=== PATIENT | female | born 1945 | race Caucasian/White ===

== ENCOUNTER 2021-01-12 16:49 | Inpatient (IN) | payer OTHER ==
[2021-01-12] MEDS ORDERED: Lorazepam 2 MG/ML VIAL ONE (17:07)
[2021-01-12 17:09] LABS: #Basophils 0.1 thou/uL (0.0-0.2); #Eosinphils 0.1 thou/uL (0.0-0.7); #Lymphocytes 1.5 thou/uL (1.20-3.40); #Monocytes 0.3 thou/uL (0.11-0.59); #Neutrophils 10.7 thou/uL (1.40-6.50); %Basophils 0.7 % (0.0-1.0); %Eosinophils 0.7 % (0.0-10.0); %Lymphocytes 11.5 % (21.0-51.0); %Monocytes 2.7 % (0.0-10.0); %Neutrophils 84.4 % (42.0-75.0); Hemoglobin 14.3 g/dL (12.0-16.0); Mean Corpuscular HGB CONC 33.6 g/dL (32.0-36.0); Mean Corpuscular Hemoglobin 31.7 pg (27.0-31.0); Mean Corpuscular Volume 94.4 fL (78.0-98.0); Mean Platelet Volume 6.1 fL (7.4-10.4); Platelet Count 212 thou/uL (130-400); RBC Distribution Width 12.5 % (11.5-14.5); Red Blood Cell (RBC) Count 4.52 mill/uL (4.20-5.40); White Blood Cell (WBC) Count 12.6 thou/uL (4.8-10.8)
[2021-01-12 17:15] LABS: INR-International Normal Ratio 0.9; PTT 26.5 sec (22.9-36.1); Prothrombin Time 12.8 sec (12.0-14.7)
[2021-01-12] MEDS ORDERED: levETIRAcetam in NS 100 ML ONE (17:21)
[2021-01-12 17:29] LABS: ALT (SGPT) 13 U/L (8-55); AST (SGOT) 15 U/L (5-34); Albumin 4.4 g/dL (3.4-4.8); Alkaline Phosphatase 85 U/L (40-110); Anion Gap 19 mmol/L (10-20); BUN (Urea Nitrogen) 12 mg/dL (9.8-20.1); Bilirubin, Total 0.4 mg/dL (0.2-1.2); Calc. Creatinine Clearance 0 mL/min (70-130); Calcium 9.8 mg/dL (7.8-10.44); Carbon Dioxide 18 mmol/L (23-31); Chloride 100 mmol/L (98-107); Globulin 2.8 g/dL (2.4-3.5); Glucose 106 mg/dL (83-110); Potassium 4.7 mmol/L (3.5-5.1); Protein, Total 7.2 g/dL (5.8-8.1); Sodium 132 mmol/L (136-145)
[2021-01-12] MEDS ORDERED: niCARdipine 20MG In NaCl 20 MG/200 ML BAG ONE (18:20)
[2021-01-12 18:33] LABS: Actual Bicarbonate (HCO3v) 18 mEq/L (22-28); Analyzer IN Cardio ER; Base Excess -2.6 mEq/L (-2.0 to +3.0); Calcium, Ionized (venous) 0.98 mmol/L (1.16-1.32); Chloride (VBG) 100 mmol/L (98-106); Hemoglobin (Hb) 16.1 g/dL (11.7-16.1); Potassium (VBG) 5.68 mmol/L (3.70-5.30); Sodium 129.5 mmol/L (133-146); pH (venous) 7.52 (7.32-7.43)
[2021-01-12] MEDS ORDERED: niCARdipine 25 MG in Sodium Chloride 0.9% 250 ML 240 ML IVPB PRN (19:42)
[2021-01-12] MEDS ORDERED: Sodium Chloride 0.9% 1,000 ML IV SCH (19:45)
[2021-01-12] MEDS ORDERED: Acetaminophen 650 MG/20.3 ML UDCUP PO PRN (19:47)
[2021-01-12] MEDS ORDERED: Ketorolac Tromethamine 30 MG/ML VIAL IVP SCH (21:00)
[2021-01-12] MEDS ORDERED: hydrALAZINE 20 MG/ML VIAL SLOW IVP PRN (21:26)
[2021-01-12] MEDS ORDERED: Aspirin 325 MG TAB PO SCH (22:00)
[2021-01-12] MEDS ORDERED: Trospium 20 MG TAB PO SCH (22:15)
[2021-01-12 22:21] LABS: Hemoglobin A1c 4.6 % (4.0-6.0)
[2021-01-12 22:31] LABS: Cardiac Risk 3.7 (Less than 4.5)
[2021-01-12] MEDS ORDERED: Acetaminophen 500 MG TAB ONE (22:42)
[2021-01-12] MEDS ORDERED: Lorazepam 2 MG/ML VIAL SLOW IVP PRN (22:48)
[2021-01-12 22:59] LABS: Bacteria/HPF None Seen HPF (None Seen); Bilirubin Negative (Negative); Blood, Urine Negative (Negative); Clarity Clear (Clear); Glucose, Urine (Dipstick) Normal (Negative); Ketone, Urine 80 mg/dL (Negative); Leukocyte 250 Leu/uL (Negative); Nitrite Negative (Negative); Protein, Urine (Dipstick) 20 mg/dL (Neg-Trace); RBC/HPF 0-3 HPF (0-3); Specific Gravity, Urine 1.012 (1.002-1.036); Squamous Epithelial 0-3 HPF (0-3); Urobilinogen Normal mg/dL (Less than 2); WBC/HPF 21-50 HPF (0-3)
[2021-01-13 05:31] LABS: Hemoglobin 12.4 g/dL (12.0-16.0); Mean Corpuscular HGB CONC 32.8 g/dL (32.0-36.0); Mean Corpuscular Hemoglobin 30.7 pg (27.0-31.0); Mean Corpuscular Volume 93.5 fL (78.0-98.0); Mean Platelet Volume 6.2 fL (7.4-10.4); Platelet Count 205 thou/uL (130-400); RBC Distribution Width 12.3 % (11.5-14.5); Red Blood Cell (RBC) Count 4.05 mill/uL (4.20-5.40); White Blood Cell (WBC) Count 10.9 thou/uL (4.8-10.8)
[2021-01-13 05:39] LABS: ALT (SGPT) 10 U/L (8-55); AST (SGOT) 13 U/L (5-34); Albumin 3.8 g/dL (3.4-4.8); Alkaline Phosphatase 73 U/L (40-110); Anion Gap 16 mmol/L (10-20); BUN (Urea Nitrogen) 10 mg/dL (9.8-20.1); Bilirubin, Total 0.5 mg/dL (0.2-1.2); Calc. Creatinine Clearance 93 mL/min (70-130); Carbon Dioxide 19 mmol/L (23-31); Chloride 102 mmol/L (98-107); Globulin 2.4 g/dL (2.4-3.5); Glucose 90 mg/dL (83-110); Potassium 3.7 mmol/L (3.5-5.1); Protein, Total 6.2 g/dL (5.8-8.1); Sodium 133 mmol/L (136-145)
[2021-01-13] MEDS: Levothyroxine Sodium 100 MCG TAB PO SCH ×2 (05:49→05:57)
[2021-01-13] MEDS: Acetaminophen 325 MG TAB PO PRN ×2 (06:10→12:11)
[2021-01-13 06:16] LABS: Band 1 % (5-11); Lymphocytes 27 % (21-51); MDiff Complete? YES; Monocytes 6 % (0-10); Neutrophil 63 % (42-75); Reactive Lymphocytes 3 % (0-10)
[2021-01-13] MEDS ORDERED: Ketorolac Tromethamine 30 MG/ML VIAL IVP SCH (06:30)
[2021-01-13] MEDS ORDERED: Levothyroxine 175 MCG TAB PO SCH (06:30)
[2021-01-13] MEDS ORDERED: cefTRIAXone\\ROCEPHIN 1 GM in Sodium Chloride 0.9% 100 ML IVPB SCH (08:00)
[2021-01-13] MEDS ORDERED: OXcarbazepine 300 MG TAB PO SCH (09:00)
[2021-01-13] MEDS ORDERED: Aspirin 325 mg Enteric Coated Tablet PO SCH (09:00)
[2021-01-13] MEDS ORDERED: Amlodipine 5 MG TAB PO SCH (09:00)
[2021-01-13] MEDS ORDERED: Lisinopril 10 MG TAB PO SCH ×2 (09:00)
[2021-01-13] MEDS ORDERED: Trospium 20 MG TAB PO SCH ×2 (09:00)
[2021-01-13] MEDS ORDERED: Rosuvastatin 10 MG TAB PO SCH (09:30)
[2021-01-13 11:53] VITALS: BP 160/89; TEMP 99
[2021-01-13] MEDS ORDERED: Rosuvastatin 20 MG TAB PO SCH (21:00)
[2021-01-14] MEDS ORDERED: Levothyroxine 175 MCG TAB PO SCH (06:00)
[2021-01-14] MEDS ORDERED: Ubidecarenone 50 MG CAP PO SCH (09:00)
[2021-01-14] MEDS ORDERED: Rosuvastatin 20 MG TAB PO SCH (21:00)
== END 2021-01-13 14:43 | disposition home or self-care (01) | DRG 100 ==
LOC: ERS 16:49 → 2SE 20:55
PROVIDERS: ADMIT Family Medicine; ATTEND Family Medicine
DX: G40.909 Epilepsy, unspecified, not intractable, without status epilepticus (principal); G92 Toxic encephalopathy; G45.9 Transient cerebral ischemic attack, unspecified; N30.00 Acute cystitis without hematuria; G83.84 Todd's paralysis (postepileptic); I71.9 Aortic aneurysm of unspecified site, without rupture; I10 Essential (primary) hypertension; E03.9 Hypothyroidism, unspecified; Z86.73 Personal history of transient ischemic attack (TIA), and cerebral infarction without residual deficits; Z88.0 Allergy status to penicillin; Z79.82 Long term (current) use of aspirin; Z90.710 Acquired absence of both cervix and uterus
CPT/HCPCS: 36415; 36416; 70450; 70551; 71045; 80053; 80061; 80183; 81003; 81015; 82805; 83036; 83605; 84145; 84443; 84484; 85007; 85025; 85027; 85610; 85730; 87040; 87086; 93005; 94760; 96365; 96366; 96367; 96375; J0696; J1885; J1953; J2060; J3490